=== PATIENT | female | born 2005 ===

== ENCOUNTER 2024-04-27 04:38 | Emergency (ER) | payer BC, SELFPAY ==
--- NOTE | ~2024-04-27 | CT_ITS ---
EXAMINATION: CT ABDOMEN AND PELVIS WITH CONTRAST CLINICAL INFORMATION: Right flank pain and right lower quadrant pain. Fever. COMPARISON: None available. TECHNIQUE: Multidetector volumetric images were obtained from the superior aspect of the liver through the pubic symphysis following administration 85 mL of Omnipaque 350 intravenous contrast. Sagittal and coronal reformatted images were obtained on the technologist's workstation. Oral contrast: No This CT examination was performed using dose optimization techniques as appropriate, variously including the following: *Automated exposure control *Adjustment of mA and/or kV according to patient size (this includes techniques or standardized protocols for targeted exams where dose is matched to indication/reason for exam; i.e. extremities or head) *Use of iterative reconstruction technique DLP: 1550 mGy-cm FINDINGS: LOCALIZER IMAGES: Normal bowel gas pattern. Obese body habitus. LUNG BASES: No pulmonary consolidation or pleural effusion. HEPATOBILIARY: There is hepatomegaly and diffuse hepatic steatosis. Gallbladder has a normal appearance. No dilated bile ducts. PANCREAS: No edema, pancreatic ductal dilatation or mass. SPLEEN: 14 cm maximum dimension. No focal splenic lesion. ADRENAL GLANDS: Normal. KIDNEYS AND URETERS: Kidneys are normal in size and enhance symmetrically. No hydronephrosis or perinephric edema. There appears to be a small amount of contrast excreted into the renal collecting systems and this could interfere with the evaluation for any small renal stones. No overt renal calculi. The ureters are unremarkable. BLADDER: Normal. BOWEL AND PERITONEUM: Stomach and small bowel are unremarkable. No dilated loops. The appendix is normal. No overt colonic wall thickening or mesenteric fat stranding. No free fluid or pneumoperitoneum. ABDOMINAL WALL: Unremarkable. VASCULATURE: Normal. LYMPH NODES: No pathologic sized lymph nodes in the abdomen or pelvis. No inguinal lymphadenopathy. PELVIC VISCERA: No uterine or adnexal mass. No pelvic free fluid. MUSCULOSKELETAL: No acute or suspicious osseous abnormality. CT/CT abdomen pelvis w IV con IMPRESSION: * No acute imaging abnormalities in the abdomen or pelvis. * Obesity, hepatosplenomegaly and diffuse hepatic steatosis.
[2024-04-27 05:02] VITALS: BP 158/94; PULSE 128; RESP 16; TEMP 37.3; O2SAT 97; BMI 53.8
--- NOTE | 2024-04-27 05:23 | ED_ITS ---
[facility] - General Adult General Chief complaint: General Medical Stated complaint: fever, n/v/d Time Seen by Provider: 04/27/24 05:03 Source: patient Mode of arrival: ambulatory History of Present Illness ED Provider: Dr Warren [facility] narrative: 18-year-old female without significant past medical history presents with onset of headaches and body aches with fatigue and multiple episodes of nonbloody diarrhea over the past 3 days, development of nausea with an episode of vomiting today, also had chills and measured a temperature of 101 degrees last night. Patient works at a daycare. She denies any recent travel, is currently on control and LMP was 3 weeks ago Related Data Previous Rx's ?Medication ?Instructions ?Recorded ondansetron 4 mg disintegrating 4 mg PO Q8H PRN nausea and 04/27/24 tablet vomiting #7 tabs Allergies Allergy/AdvReac Type Severity Reaction Status Date / Time No Known Allergies Allergy Verified 04/27/24 05:05 Review of Systems Review of Systems: Pertinent positives and negatives as stated in [facility] Past Medical History Source: nursing notes reviewed Social History Social History Smoked in Last 30 Days: No Use of substances other than those prescribed or required for medical reasons: No Advance Directives: No Advance Directives Information Provided: No Do you have a plan to hurt others: No Plan Physical Exam ED Vital Signs: Vital Signs - 24 hr 04/27/24 05:02 04/27/24 06:45 Temperature 99.1 F 101.8 F H Pulse Rate 128 H 116 H Respiratory Rate 16 16 Blood Pressure 158/94 H 129/60 Pulse Oximetry 97 98 Oxygen Delivery Method Room Air Room Air BMI result Body Mass Index 53.8 VITAL SIGNS: Reviewed. GENERAL: Elevated BMI, Well developed, well nourished, in no acute distress. HEAD: Normocephalic/atraumatic EYES: PERRLA, EOMI EARS: Ext canals without abnormality, TMs non-bulging and non-erythematous NOSE: Nares patent bilateral OROPHARYNX: no oral lesions noted, posterior pharynx clear and non-erythematous without noted tonsillar enlargement/erythema/exudates NECK: Supple, no adenopathy LUNGS: Normal breath sounds. No adventitious sounds or accessory muscle use. SpO2<97> CARDIOVASCULAR: Regular rate and rhythm without noted murmurs ABDOMEN: Soft, non-tender, non-distended with bowel sounds. MUSCULOSKELETAL: No tenderness, deformities, or effusions noted on gross inspection. EXTREMITIES: No cyanosis, clubbing or edema. SKIN: Inspection of the skin reveals no rashes NEUROLOGIC: Alert and oriented x 4. Strength and sensation to light touch were grossly intact x 4. Medications Administered Discontinued Medications Generic Name Dose Route Start Last Admin Trade Name Freq PRN Reason Stop Dose Admin Sodium Chloride 1,000 mls @ 999 mls/hr 04/27/24 05:30 04/27/24 06:17 Ns IV 04/27/24 06:30 999 mls/hr .Q1H1M LAXMI Administration Ketorolac Tromethamine 15 mg 04/27/24 05:23 04/27/24 06:20 Ketorolac Tromethamine 30 Mg/Ml Vial IVPUSH 04/27/24 05:24 15 mg ONCE ONE Administration Ondansetron HCl 4 mg 04/27/24 04:40 04/27/24 06:19 Ondansetron Odt 4 Mg Tab.Rapdis TRANSLINGU 04/27/24 04:41 4 mg ONCE ONE Administration Medical Decision Making Medical Decision Making [facility] Narrative: 18-year-old female with history and clinical presentation, DDX: Viral gastroenteritis, no clinical suspicion for food poisoning, possible urinary tract infection but felt to be less likely and no concern for renal colic at this time. I reviewed all investigations and urinalysis negative for UTI, COVID-19 is negative and rapid strep is negative. Patient is unable to produce a stool sample and was provided with 1 L of IV fluids/Zofran and analgesics. Plan for discharge. Patient instructed to follow-up with primary care doctor to get stool sample if she would like it. Differential Diagnosis Differential Diagnoses: The differential diagnosis associated with the presentation includes Please see the discussion above Admission/Observation Consideration of admission/observation: Escalation of care including admission/observation considered Please see the discussion above Lab Data [facility] Lab Attestation statement: I reviewed the patient's lab results. Please see the discussion above Labs: Lab Results 04/27/24 Range/Units 05:28 Urine Color Yellow Urine Appearance Cloudy Urine pH 5.5 (5.0-9.0) Ur Specific [place] 1.025 (1.005-1.025) Urine Protein Trace (Neg-Trace) mg/dL Urine Glucose (UA) Negative (Negative) mg/dL Urine Ketones Negative (Negative) mg/dL Urine Blood Moderate (2+) H (Negative) Urine Nitrite Negative (Negative) Ur Leukocyte Esterase Moderate (2+) H (Negative) Urine RBC 3-5 H (0-2) /HPF Urine WBC 11-20 (0-5) /HPF Ur Squamous Epith Cells >20 (0-2) /HPF Urine Bacteria 2+ (None Seen) Hyaline Casts 3-5 (0-2) /LPF Urine Test NEGATIVE (NEGATIVE) COVID-19 (LILO) Negative (Negative) COVID-19 Clin Com See Note S. pyogenes GrpA FROYLAN Negative (Negative) Critical Care Time Critical Care Time Critical Care Time: Yes Total Critical Care Time: 30 Attestation: I personally attest to this time spent taking care of the patient. Discharge Plan Discharge Clinical Impression: Gastroenteritis Patient Disposition: Still a Patient Instructions: Gastroenteritis (ED), Nutrition Tips for Relief of Diarrhea (ED) Additional Instructions: 1. Continue to stay well hydrated and use the prescription for nausea control medication to help you do this. 2. Recommend [id number] Tylenol/ibuprofen as needed for any temperatures greater than 100.4. 3. Please review the recommendations for dietary changes to help resolve the diarrhea. Return to the ER for any worsening symptoms. Prescriptions: New ondansetron 4 mg tablet,disintegrating 4 mg PO Q8H PRN (Reason: nausea and vomiting) Qty: 7 0RF Stand Alone Forms: Work/School Release Print Language: [place]
[2024-04-27 05:44] LABS: Appearance Urine Cloudy; Color Urine Yellow; Glucose Urine UA Negative (Negative); Leukocyte Esterase Urine Moderate (2+) (Negative); Nitrite Urine Negative (Negative); PH 5.5 (5.0-9.0); Specific Gravity - Urine 1.025 (1.005-1.025); UMIC TRIGGER UACC YES; Urine Blood Moderate (2+) (Negative); Urine Ketones Negative (Negative); Urine Protein Trace mg/dL (Neg-Trace)
[2024-04-27 05:45] LABS: UPreg QC Valid YES; Urine Pregnancy NEGATIVE (NEGATIVE)
[2024-04-27 05:58] LABS: COVID-19 Test Negative (Negative); IDNOW Serial# 08D9AD1C; IDNOW Serial# 152EDE1D; Strep A Nucleic Acid Negative (Negative)
[2024-04-27 05:59] LABS: Bacteria Urine 2+ (None Seen); Squamous Epithelial Cell Urine >20 /HPF (0-2); UACC Culture Trigger YES
[2024-04-27] MEDS: 0.9 % Sodium Chloride 1,000 ML 999 ML IV ×2 (06:17→08:22)
[2024-04-27] MEDS: Ondansetron ODT 4 MG TAB.RAPDIS TRANSLINGU (06:19)
[2024-04-27] MEDS: Ketorolac Tromethamine 30 MG/ML VIAL 15 MG IVPUSH (06:20)
--- NOTE | 2024-04-27 06:24 | PC.NURSE ---
Pt reporting 06/17 abd bodyaches Pt ca&ox4, no signs of distress. Pts family at bedside. Pt medicated per jan. Plan of care ongoing.
[2024-04-27 06:45] VITALS: BP 129/60; PULSE 116; RESP 16; TEMP 38.8; O2SAT 98
[2024-04-27] MEDS: Acetaminophen 325 MG TABLET 975 MG PO (06:56)
--- NOTE | 2024-04-27 06:58 | PC.NURSE ---
Pt medicated per mar. Plan of care ongoing
[2024-04-27 07:42] LABS: Basophils Percent Auto 0.4 % (0-2); Imm Gran Abs Auto 0.04 X10*3/uL (0.00-0.03); Imm Gran Pct Auto 0.4 % (0.0-0.4); MANUAL DIFF FLAG SCAN; PLT CLUMP 1; SCAN SMEAR FLAG 1
[2024-04-27 07:44] LABS: Eosinophils Percent Auto 0.3 % (0-4); Hematocrit 35.5 % (37.0-47.0); Hemoglobin 11.6 g/dl (12.0-16.0); Lymphocytes Absolute Auto 0.8 X10*3/uL (1.2-4.9); Lymphocytes Percent Auto 8.2 % (20-40); Mean Corpuscular HGB Conc 32.7 g/dl (31.0-35.0); Mean Corpuscular Hemoglobin 27.3 pg (27.0-33.0); Mean Corpuscular Volume 83.5 fL (80.0-98.0); Mean Platelet Volume 11.2 fL (9.4-12.3); Monocytes Absolute Auto 0.5 X10*3/uL (0.1-1.2); Monocytes Percent Auto 4.8 % (2-11); Neutrophils Absolute Auto 8.4 x10*3/uL (2.0-8.3); Neutrophils Percent Auto 85.9 % (45-73); Red Blood Count 4.25 X10*6/uL (4.20-5.50); Red Cell Distribution Width 13.4 % (11.0-16.0)
[2024-04-27 07:45] LABS: White Blood Count 9.8 X10*3/uL (4.8-10.8)
[2024-04-27 07:52] LABS: Lactic Acid 1.9 mmol/L (0.5-2.0)
[2024-04-27 07:57] LABS: Alanine Aminotransferase 29 U/L (0-31); Albumin Level 3.5 g/dL (3.5-5.0); Alkaline Phosphatase 57 U/L (39-117); Anion Gap 11 (12-20); Aspartate Amino Transferase 29 U/L (5-31); Bilirubin Direct < 0.2 mg/dL (0.0-0.5); Bilirubin Total 0.2 mg/dL (0.0-1.0); Blood Urea Nitrogen 10 mg/dL (9-16); Calcium 8.2 mg/dL (8.4-10.2); Carbon Dioxide 21 mmol/L (22-29); Chloride 108 mmol/L (96-108); Creatinine Clr Calc Pharmacy 217.7; Estimated Glomerular Filt Rate > 60; Glucose Random 141 mg/dL (60-115); Magnesium 1.7 mg/dL (1.6-2.6); Potassium 4.3 mmol/L (3.3-5.1); Sodium 136 mmol/L (135-145); Total Protein 6.9 g/dL (6.5-8.0)
[2024-04-27 08:02] LABS: Platelet Count 196 X10*3/uL (160-400)
[2024-04-27 08:03] LABS: SLIDE REVIEW VERIFIED
--- NOTE | 2024-04-27 08:11 | PC.NURSE ---
pt to CT at this time.
--- NOTE | 2024-04-27 08:22 | PC.NURSE ---
pt returned from CT at this time. repeat oral temp obtained - pt no longer febrile. IVF administered per provider order. plan of care ongoing.
[2024-04-27 08:23] VITALS: BP 120/55; PULSE 117; RESP 18; TEMP 37.1; O2SAT 97
[2024-04-27] MEDS: iohexoL 350 MG/ML 100 ML INFUS..BTL 85 ML IV (08:31)
[2024-04-27 09:40] VITALS: BP 120/55; PULSE 117; RESP 18; TEMP 37.1; O2SAT 97
== END 2024-04-27 09:41 | disposition home or self-care (01) ==
PROVIDERS: Student in an Organized Health Care Education/Training Program; Emergency Provider Emergency Medicine
DX: K52.9 Noninfective gastroenteritis and colitis, unspecified (principal); R10.31 Right lower quadrant pain; R50.9 Fever, unspecified; Z11.52 Encounter for screening for COVID-19
CPT/HCPCS: 36415; 74177; 80048; 80076; 81001; 81025; 83605; 83735; 85025; 87040; 87086; 87635; 87651; 96361; 96374; 99284; 99285; J1885; Q9967